=== PATIENT | female | born 1970 | race Asian ===

== ENCOUNTER → 2020-04-05 09:33 | Outpatient (CLI) | payer OTHER, SELFPAY ==
[2020-04-05 12:24] LABS: Add Manual Diff / Slide Review NO; Basophils Absolute Auto 0 /uL (0-100); Basophils Percent Auto 0.9 % (0-2); Eosinophils Absolute Auto 100 /uL (0-450); Hematocrit 40.2 % (36-46); Hemoglobin 13.1 g/dL (12.0-16.0); Lymphocytes Absolute Auto 1500 /uL (1100-4500); Lymphocytes Percent Auto 37.2 % (25-40); Mean Corpuscular HGB Conc 32.7 % (30-36); Mean Corpuscular Hemoglobin 30.1 PG (26-34); Mean Corpuscular Volume 92.1 fL (80-100); Monocytes Absolute Auto 200 /uL (0-900); Monocytes Percent Auto 5.9 % (3-14); Neutrophils Absolute Auto 2100 /uL (1500-7000); Platelet Count 184 X10^3/uL (150-400); Red Blood Cell Count 4.37 X10^6/uL (4.0-5.2); Red Cell Distribution Width 13.5 % (11.6-14.8); White Blood Cell Count 3.9 X10^3/uL (4.5-11.0)
[2020-04-05 12:44] LABS: Alanine Aminotransferase 147 IU/L (<35); Albumin Globulin Ratio 1.3 (1.0-2.8); Alkaline Phosphatase 68 U/L (38-126); Aspartate Aminotransferase 101 IU/L (14-36); BUN Creatinine Ratio 34.4 (6-22); Bilirubin Total 0.5 mg/dL (0.2-1.3); Blood Urea Nitrogen 22 mg/dL (7-17); Calcium 9.4 mg/dL (8.4-10.2); Carbon Dioxide 33 mmol/L (22-32); Chloride 106 mmol/L (98-107); Cholesterol 171 mg/dL (140-199); Estimated Glomerular Filt Rate > 60.0 mL/min (>60); Glucose 92 mg/dL (70-100); HDL Cholesterol 68 mg/dL (40-60); HEMOLYSIS < 15 (0-50); LDL Cholesterol Calculated 95 mg/dL (<100); Potassium 4.4 mmol/L (3.4-5.1); Sodium 140 mmol/L (137-145); Triglycerides 39 mg/dL (35-150)
[2020-04-05 13:13] LABS: Appearance Urine UA CLEAR; Bilirubin Urine UA NEGATIVE (NEGATIVE); Color Urine UA YELLOW; Glucose Urine UA NEGATIVE (Negative); Ketones Urine UA NEGATIVE (NEGATIVE); Leukocyte Esterase Urine UA NEGATIVE (NEGATIVE); Nitrite Urine UA NEGATIVE (Negative); Occult Blood Urine UA NEGATIVE (Negative); Protein Urine UA NEGATIVE (Negative); Specific Gravity Urine UA 1.025 (1.000-1.035); Urobilinogen Urine UA 0.2 E.U./dL (0.2)
== END ==
PROVIDERS: PCP Registered Nurse; Referring Provider Registered Nurse; Visit Provider Registered Nurse
DX: Z00.00 Encounter for general adult medical examination without abnormal findings (principal); Z82.49 Family history of ischemic heart disease and other diseases of the circulatory system
CPT/HCPCS: 80053; 80061; 81003; 85025

== ENCOUNTER → 2020-04-21 08:33 | Outpatient (CLI) | payer OTHER, SELFPAY ==
--- NOTE | 2020-04-21 08:35 | DI.MG.S_ITS ---
BILATERAL DIGITAL SCREENING MAMMOGRAM 3D/2D WITH CAD: 04/21/2020 CLINICAL: Baseline exam. Routine screening. Family history of breast cancer. No prior exams were available for comparison. There are scattered fibroglandular elements in both breasts. Current study was also evaluated with a Computer Aided Detection (CAD) system. No significant masses, calcifications, or other findings are seen in either breast. IMPRESSION: NEGATIVE There is no mammographic evidence of malignancy. A 1 year screening mammogram is recommended. This exam was interpreted at Station ID: [id number]. NOTE: For mammograms, a report in lay terms will be sent to the patient. Approximately 15% of breast malignancies will not be visualized mammographically. In the management of a palpable breast mass, a negative mammogram must not discourage biopsy of a clinically suspicious lesion. Electronically Signed By: Mau Segundo acr/hayden:04/21/2020 08:55:58 letter sent: Normal Exam ACR BI-RADS Category 1: Negative 3341F
== END ==
PROVIDERS: PCP Registered Nurse; Referring Provider Registered Nurse; Visit Provider Registered Nurse
DX: Z12.31 Encounter for screening mammogram for malignant neoplasm of breast (principal); Z80.3 Family history of malignant neoplasm of breast
CPT/HCPCS: 77063; 77067

== ENCOUNTER → 2020-05-27 09:06 | Outpatient (CLI) | payer OTHER, SELFPAY ==
[2020-05-27 10:30] LABS: COVID19 -Nasal RAPID Negative (Negative)
== END ==
PROVIDERS: PCP Registered Nurse; Visit Provider Surgery
DX: Z01.812 Encounter for preprocedural laboratory examination (principal); Z20.822 Contact with and (suspected) exposure to COVID-19
CPT/HCPCS: 87635; C9803

== ENCOUNTER 2020-05-30 08:12 | Day surgery (SDC) | payer OTHER, SELFPAY ==
--- NOTE | 2020-05-30 | PATH_ITS ---
[facility] Accession Number: [id number] . 01 Material submitted: . colon - CECUM POLYP . 01 Clinical history: . SDC . 02 Diagnosis: Cecum, Polyp: Tubular adenoma. MRV 06/02/2020 1105 Local . 02 Electronically signed: . Gino Mckinney MD, PhD, Pathologist NPI- [id number] . 01 Gross description: . The specimen is received in formalin, labeled cecum polyp and consists of a 0.3 x 0.3 x 0.2 cm grey fragment of soft tissue which is entirely submitted in cassette A1. ([id number]) /MRV 05/31/2020 1441 Local . 02 Pathologist provided ICD-10: D12.0 . 02 CPT . 415856 Performed at: 01 [facility] [address] [id number] MD Jose Juan Marte MD Phone: [phone] Performed at: 02 [facility] [place] [address] [facility] [facility] [address] [place], [place] [id number] MD Kailyn Tolentino MD Phone: [phone]
[2020-05-30] MEDS: LACTATED RINGERS 1,000 ML 200 ML IV (08:33)
[2020-05-30 08:36] VITALS: BP 103/72; PULSE 81; RESP 16; TEMP 36.8; O2SAT 96; BMI 22.6
--- NOTE | 2020-05-30 09:30 | PM.HP.1 ---
History of Present Illness History of Present Illness Date Patient Seen: 05/30/20 Time Patient Seen: 09:30 Chief complaint: SCC Narrative: The patient presents for colorectal sreening. They had a previously normal colonoscopy 10 years ago. No personal or family history of colon cancer. On further history denies any recent gastrointestinal symptoms. No nausea, vomiting, abdominal pain, loss of appetite, unexplained weight loss, change in bowel habits, diarrhea, constipation, melena, hematochezia, or bright red blood per rectum. Patient History Medical History Foot pain Surgical History Anesthesia History of section (~2004) Family & Social History Family History Mother History of heart disease Sister Breast cancer Social History: household members spouse,children Tobacco & Substance use: Smoking Status Never smoker alcohol intake current alcohol intake frequency a few times a month Substance Use Type does not use Meds Home Medications and Allergies Home Medications Medication Instructions Recorded Confirmed Type No Known Home Medications 03/01/20 05/30/20 History Allergies Allergy/AdvReac Type Severity Reaction Status Date / Time No Known Drug Allergies Allergy Verified 05/30/20 08:33 Review of Systems Review of Systems Narrative: A 10 point review of systems is negative except as noted in the HPI Exam Vital Signs (past 8 hours): - 05/30/20 08:36 Temperature 98.2 F Pulse Rate 81 Respiratory Rate 16 Blood Pressure 103/72 Pulse Oximetry 96 Oxygen Delivery Method Room Air Narrative Exam Narrative: General-no acute distress, well nourished thin female HEENT-moist mucous membranes, no scleral icterus Neck-supple, no lymphadenopathy Chest- non labored respirations, clear to auscultation bilaterally Cardiac-regular rate no peripheral edema Abdomen-soft, nontender, non distended Extremities-warm, well perfused Neurological-alert and oriented, no focal deficits Assessment & Plan Assessment & Plan narrative: The patient requires colorectal screening and colonoscopy is recommended. Technical details were discussed. Risks, benefits, alternatives explained. Risks including but not limited to myocardial infarction, aspiration, bleeding, pain, missed lesion, incomplete examination, need for further radiographic studies, colonic perforation, and need for major abdominal surgery were discussed. All questions were answered to their satisfaction, and they are in agreement with this plan.
[2020-05-30] MEDS: fentaNYL 250 MCG/5 ML INJ IV (09:35)
[2020-05-30] MEDS: MIDAZOLAM 5 MG/5 ML VIAL IV (09:35)
--- NOTE | 2020-05-30 09:57 | P.OP.ENDO_ITS ---
Operative Date/Time/Diagnoses Date of procedure: 05/30/20 Time of procedure: 09:57 Pre-op diagnosis: Screening colonoscopy Post-op diagnosis: same Procedure & Clinicians Study performed: Colonoscopy Polypectomy Same procedure as scheduled: Yes Indications: 49-year-old female last colonoscopy 10 years ago normal presents for routine screening Surgeon: Suhail Ballard Procedure Notes Procedure in detail: Medications: Conscious sedation [id number] IV midazolam and 100mcg IV of fentanyl The history and physical was performed/updated and the patient is ASA class is 1. The procedure was discussed in detail with the patient. Potential risks co mplications including infection, bleeding, missed diagnosis, perforation, need for surgery, and were explained. Their questions were answered and informed consent was obtained. Patient was brought to the procedure room and placed standard monitoring equipment. The patient's vital signs were monitored continuously throughout the entire procedure. Prior to starting time-out was performed. The patient was placed in the left lateral recumbent position. Procedural sedation was administered. Examination began with a thorough inspection of the perianal area there was no evidence of fissures, fistulae, external hemorrhoids or cutaneous malignancy. The colonoscopy scope was then placed into the anal canal and was advanced to the cecum, which was identified by the ileocecal valve, the appendiceal orifice and the confluence of the taenia. The scope was then slowly withdrawn examining colon thoroughly in all directions, irrigating it of any residual stool. 3 mm cecal polyp removed biopsy forceps The patient tolerated the procedure well. They will be discharged once criteria are met. The prep was of good/excellent quality. The withdrawl time was 10 minutes. The sedation time was 20 minutes. Specimen(s): other (Cecal polyp) Complications: none Impression: Colonic polyp Post-procedure Recommendations: Colonscopy in 5 years Disposition: same day surgery
[2020-05-30 09:59] VITALS: BP 96/63; PULSE 71; RESP 8; TEMP 36.1; O2SAT 96
[2020-05-30 10:03] VITALS: BP 101/65; PULSE 75; RESP 12; O2SAT 96
[2020-05-30 10:08] VITALS: BP 97/65; PULSE 65; RESP 10; O2SAT 96
[2020-05-30 10:13] VITALS: BP 105/75; PULSE 61; RESP 14; TEMP 36.5; O2SAT 95
[2020-05-30 10:17] VITALS: BP 108/74; PULSE 61; RESP 13; TEMP 36.6; O2SAT 97
== END 2020-05-30 10:31 | disposition home or self-care (01) ==
PROVIDERS: PCP Registered Nurse; Referring Provider Registered Nurse; Visit Provider Surgery
PROC: 0DJD8ZZ Inspection of Lower Intestinal Tract, Via Natural or Artificial Opening Endoscopic (ICD-10-PCS; CPT 45378; principal; 2020-05-30 09:15)
DX: Z12.11 Encounter for screening for malignant neoplasm of colon (principal); D12.0 Benign neoplasm of cecum
CPT/HCPCS: 45380; 99152; J2250; J3010

== ENCOUNTER → 2020-06-10 15:55 | Outpatient (CLI) | payer OTHER, SELFPAY ==
--- NOTE | 2020-06-10 15:58 | DI.RAD.S_ITS ---
PROCEDURE: XR FOOT LT MIN 3V INDICATIONS: left foot pain/sole of foot TECHNIQUE: 3 views of the foot were acquired. COMPARISON: None. FINDINGS: Bones: No fractures or dislocations. No suspicious bony lesions. Well-defined plantar calcaneal enthesophyte is seen. Soft tissues: No tibiotalar joint effusion. Achilles tendon appears normal. IMPRESSION: Well-defined plantar calcaneal enthesophyte. If clinically suspecting plantar fasciitis, ultrasound or MRI of calcaneus can be done for further evaluation. Dictated by: Rodrigue Conrad M.D. on 06/10/2020 at 16:37 Approved by: Rodrigue Conrad M.D. on 06/10/2020 at 16:37
[2020-06-10 17:06] LABS: Alanine Aminotransferase 69 IU/L (<35); Albumin Globulin Ratio 1.4 (1.0-2.8); Alkaline Phosphatase 52 U/L (38-126); Aspartate Aminotransferase 50 IU/L (14-36); Bilirubin Total 0.2 mg/dL (0.2-1.3); Bilirubin Unconjugated 0.3 mg/dL (0.0-1.1); Globulin 2.9 g/dL (1.7-4.1); HEMOLYSIS < 15 (0-50); Total Protein 6.9 g/dL (6.3-8.2)
[2020-06-11 07:40] LABS: Alpha Fetoprotein 2.3 ng/mL (0.0-8.3)
== END ==
PROVIDERS: PCP Registered Nurse; Referring Provider Registered Nurse; Visit Provider Registered Nurse
DX: M79.672 Pain in left foot (principal); M79.673 Pain in unspecified foot; R74.8 Abnormal levels of other serum enzymes
CPT/HCPCS: 36415; 73630; 80076; 82105

== ENCOUNTER → 2020-06-16 07:51 | Outpatient (CLI) | payer OTHER, SELFPAY ==
--- NOTE | 2020-06-16 07:52 | DI.US.S_ITS ---
PROCEDURE: US ABDOMEN COMPLETE INDICATIONS: ELEVATED LIVER ENZYMES TECHNIQUE: Real-time scanning was performed of the abdominal and retroperitoneal organs, with image documentation. COMPARISON: None. FINDINGS: Liver: Liver is normal in size and homogeneous in echotexture. The main portal vein demonstrates normal size and demonstrates normal appearing, hepatopetal flow. Gallbladder: No findings of gallstones or sludge are seen. The gallbladder wall is not thickened, measuring 3 mm or less. Multiple likely gallbladder wall polyps are seen, with the largest measuring up to 4.6 mm. No specific pericholecystic fluid is seen. The sonographic Vences sign is negative. Biliary ducts: Intrahepatic bile ducts are non-dilated. Extrahepatic bile duct caliber measures 4 mm. Normal is 6-7 mm or less in diameter, or 10 mm or less post-cholecystectomy. Pancreas: Visualized portions of the pancreas are sonographically normal. Spleen: Spleen is normal in size and homogeneous in echotexture. Kidneys: Kidneys are normal in size and echotexture. Right kidney measures 9.6 cm long; left kidney measures 9.4 cm long. No hydronephrosis or nephrolithiasis. However, on the right, there is trace pelvicaliectasis. No solid masses. Aorta: Visualized aorta is normal in caliber at less than 3 cm. Iliacs: Proximal common iliac arteries are normal in caliber at less than 2.5 cm. IVC: Intrahepatic inferior vena cava is patent. Miscellaneous: No free abdominal fluid. IMPRESSION: Normal appearing liver. Normal appearing gallbladder wall polyps are seen, without additional gallbladder abnormality. No biliary dilatation. Trace right kidney pelvicaliectasis incidentally noted. Dictated by: Yao Vuong M.D. on 06/16/2020 at 9:37 Approved by: Yao Vuong M.D. on 06/16/2020 at 9:39
== END ==
PROVIDERS: PCP Registered Nurse; Referring Provider Registered Nurse; Visit Provider Registered Nurse
DX: R74.8 Abnormal levels of other serum enzymes (principal); N28.89 Other specified disorders of kidney and ureter
CPT/HCPCS: 76700

== ENCOUNTER → 2022-06-25 14:51 | Outpatient (CLI) | payer OTHER, SELFPAY ==
--- NOTE | 2022-06-25 14:56 | DI.MG.S_ITS ---
BILATERAL DIGITAL SCREENING MAMMOGRAM 3D/2D WITH CAD: 06/25/2022 CLINICAL: Routine screening. Family history of breast cancer. Comparison is made to exam dated: 04/21/2020 mammogram - [facility]. There are scattered areas of fibroglandular density in both breasts (category b / 25%-50% glandular tissue). Current study was also evaluated with a Computer Aided Detection (CAD) system. No significant masses, calcifications, or other findings are seen in either breast. There has been no significant interval change. IMPRESSION: NEGATIVE There is no mammographic evidence of malignancy. A 1 year screening mammogram is recommended. This exam was interpreted at Station ID: [id number]. NOTE: For mammograms, a report in lay terms will be sent to the patient. Approximately 15% of breast malignancies will not be visualized mammographically. In the management of a palpable breast mass, a negative mammogram must not discourage biopsy of a clinically suspicious lesion. Electronically Signed By: Jorge walker/hayden:06/26/2022 07:55:31 letter sent: Normal Exam ACR BI-RADS Category 1: Negative 3341F
== END ==
PROVIDERS: PCP Nurse Practitioner; Referring Provider Nurse Practitioner; Visit Provider Nurse Practitioner
DX: Z12.31 Encounter for screening mammogram for malignant neoplasm of breast (principal); Z80.3 Family history of malignant neoplasm of breast
CPT/HCPCS: 77063; 77067

== ENCOUNTER 2022-09-11 06:41 | Emergency (ER) | payer OTHER, SELFPAY ==
[2022-09-11] VITALS (11 sets, daily range): BP systolic 92–132; BP diastolic 54–87; PULSE 61–76; RESP 18–47; O2SAT 94–98; BMI 19.5
--- NOTE | 2022-09-11 06:49 | DI.RAD.S_ITS ---
PROCEDURE: XR CHEST 1V INDICATIONS: chest pain TECHNIQUE: One view of the chest was acquired. COMPARISON: None. FINDINGS: Surgical changes and devices: None. Lungs and pleura: Lungs are clear. No pleural effusions or pneumothorax. Mediastinum: Mediastinal contours appear normal. Heart size is normal. Bones and chest wall: No suspicious bony lesions. Overlying soft tissues appear unremarkable. IMPRESSION: No acute cardiopulmonary abnormality. This report is concordant with the overnight preliminary interpretation. Dictated by: Jorge Stephens M.D. on 09/11/2022 at 7:55 Approved by: Jorge Stephens M.D. on 09/11/2022 at 7:55
[2022-09-11 06:57] LABS: Add Manual Diff / Slide Review NO; Basophils Absolute Auto 0 /uL (0-100); Basophils Percent Auto 0.6 % (0-2); Eosinophils Absolute Auto 100 /uL (0-450); Eosinophils Percent Auto 2.1 % (2-4); Hematocrit 38.5 % (36-46); Hemoglobin 13.1 g/dL (12.0-16.0); Lymphocytes Absolute Auto 1000 /uL (1100-4500); Lymphocytes Percent Auto 20.8 % (25-40); Mean Corpuscular HGB Conc 33.9 % (30-36); Mean Corpuscular Hemoglobin 30.6 PG (26-34); Mean Corpuscular Volume 90.2 fL (80-100); Monocytes Absolute Auto 500 /uL (0-900); Neutrophils Absolute Auto 3200 /uL (1500-7000); Neutrophils Percent Auto 66.5 % (50-75); Platelet Count 165 X10^3/uL (150-400); Red Blood Cell Count 4.27 X10^6/uL (4.0-5.2); Red Cell Distribution Width 13.4 % (11.6-14.8); White Blood Cell Count 4.8 X10^3/uL (4.5-11.0)
[2022-09-11] MEDS: ASPIRIN 81 MG CHEW TAB 324 MG PO (07:06)
[2022-09-11] MEDS: SODIUM CHLORIDE 0.9% 1,000 ML 150 ML IV (07:07)
[2022-09-11] MEDS: NITROGLYCERIN 0.4 MG SL TAB SL (07:07)
[2022-09-11 07:12] LABS: Alanine Aminotransferase 164 IU/L (<35); Albumin 3.9 g/dL (3.5-5.0); Albumin Globulin Ratio 1.3 (1.0-2.8); Alkaline Phosphatase 68 U/L (38-126); Aspartate Aminotransferase 154 IU/L (14-36); Bilirubin Total 0.4 mg/dL (0.2-1.3); Blood Urea Nitrogen 14 mg/dL (7-17); Calcium 8.7 mg/dL (8.4-10.2); Carbon Dioxide 27 mmol/L (22-32); Chloride 105 mmol/L (98-107); Creatine Kinase 61 U/L (30-135); Estimated Glomerular Filt Rate > 60 mL/min (>60); Glucose 100 mg/dL (70-100); Lipase 183 U/L (23-300); Sodium 137 mmol/L (137-145); Total Protein 6.9 g/dL (6.3-8.2)
--- NOTE | 2022-09-11 07:29 | ED_ITS ---
HPI - General Adult General Chief complaint: Chest Pain Stated complaint: chest pain Time Seen by Provider: 09/11/22 06:48 Source: patient and family Mode of arrival: Ambulatory Limitations: no limitations History of Present Illness HPI narrative: Patient is a 51-year-old female without prior diagnosed medical problems who is here for evaluation of left-sided chest pressure. She states the pressure woke her this morning. At the time of my evaluation she would received nitroglycerin which she states she feels like has resolved her symptoms. She stated that she has had discomfort like this in the past but it was several weeks ago. It woke her from sleep. She states that it did go away on its own after several minutes. She states that it feels like it does radiate to her back. No problems breathing. Not worse with palpation or movement. No nausea vomiting. No lower extremity swelling. No interventions prior to arrival. Related Data Allergies Allergy/AdvReac Type Severity Reaction Status Date / Time No Known Drug Allergies Allergy Verified 06/23/20 08:30 Review of Systems Cardiovascular Cardiovascular: Reports system reviewed and no additional complaints, except as documented Respiratory Respiratory: Reports system reviewed and no additional complaints, except as documented Gastrointestinal Gastrointestinal: Reports system reviewed and no additional complaints, except as documented Integumentary/Breasts Skin/Breast: Reports system reviewed and no additional complaints, except as documented Neurologic Neurologic: Reports system reviewed and no additional complaints, except as documented Hematologic/Lymphatic On Anticoagulants: No Patient History Medical History Foot pain Surgical History Anesthesia History of section (~2004) Family History Mother History of heart disease Sister Breast cancer Social History household members: spouse and children Smoking Status: Never smoker alcohol intake: current Smoking Status: Never smoker alcohol intake frequency: a few times a month Substance Use Type: does not use Exam Initial Vital Signs Initial Vital Signs: Vital Signs Pulse Rate 76 09/11/22 06:47 Respiratory Rate 18 09/11/22 06:47 Blood Pressure 129/84 09/11/22 06:47 Pulse Oximetry 97 09/11/22 06:47 Const General: cooperative, comfortable and No ill appearing HENMT Head: normal to inspection and normocephalic Resp Effort & Inspection: normal respiratory effort Auscultation: clear to auscultation bilaterally Cardio Rate: regular rate Rhythm: regular rhythm GI Inspection: non-distended Palpation: soft and No tender Skin General: no rashes or lesions noted Neuro General: patient alert, patient awake and moves all extremities Extrem General: No edema Scores HEART Score Heart Score history: Moderately Suspicious Heart Score EKG: Non-Specific repolarization disturbance Heart Score Age: 45-64 years old Heart Score risk factors: No known risk factors Heart Score troponin: < or = to normal limit Heart Score Total: 3 Course Orders Ordered: ED Orders 09/11/22 06:49 XR chest 1V Stat 09/11/22 06:50 Complete Blood Count AUTO DIFF Stat Comprehensive Metabolic Panel Stat Lipase Stat Troponin & CK Cardiac Panel Stat 09/11/22 06:51 EKG-12 Lead Stat 09/11/22 09:02 Troponin & CK Cardiac Panel Stat Sodium Chloride (Normal Saline 0.9%) 1,000 mls @ 150 mls/hr IV CONT CATHERINE Last Admin: 09/11/22 07:07 Dose: 150 mls/hr Documented By: KELLY Nitroglycerin (Nitroglycerin 0.4 Mg Sl Tab) 0.4 mg SL [id number] PRN PRN Reason: Chest Pain Last Admin: 09/11/22 07:07 Dose: 0.4 mg Documented By: KELLY Discontinued Medications Aspirin (Aspirin 81 Mg Chew Tab) 324 mg PO NOW ONE Stop: 09/11/22 06:49 Last Admin: 09/11/22 07:06 Dose: 324 mg Documented By: KELLY Vital Signs Vital signs: Vital Signs - 8 hr 09/11/22 06:47 09/11/22 06:47 09/11/22 07:07 Pulse Rate 76 76 Respiratory Rate 18 Blood Pressure 129/84 132/74 Pulse Oximetry 97 09/11/22 06:59 09/11/22 06:59 09/11/22 07:00 Pulse Rate 75 74 Respiratory Rate 47 H 35 H Blood Pressure 129/87 Pulse Oximetry 97 98 09/11/22 07:03 09/11/22 07:03 Pulse Rate 76 Respiratory Rate 18 Blood Pressure 92/54 L Pulse Oximetry 98 Medical Decision Making Lab Data Lab results reviewed: Yes I reviewed the patient's lab results. 09/11/22 06:50 09/11/22 06:50 Labs: Lab Results 09/11/22 09/11/22 09/11/22 Range/Units 06:50 06:50 09:02 WBC 4.8 (4.5-11.0) X10^3/uL RBC 4.27 (4.0-5.2) X10^6/uL Hgb 13.1 (12.0-16.0) g/dL Hct 38.5 (36-46) % MCV 90.2 (80-100) fL MCH 30.6 (26-34) PG MCHC 33.9 (30-36) % RDW 13.4 (11.6-14.8) % Plt Count 165 (150-400) X10^3/uL Neut % (Auto) 66.5 (50-75) % Lymph % (Auto) 20.8 L (25-40) % [place] % (Auto) 10.0 (3-14) % Eos % (Auto) 2.1 (2-4) % Baso % (Auto) 0.6 (0-2) % Neut # (Auto) 3200 (2196-9597) /uL Lymph # (Auto) 1000 L (1879-4231) /uL [place] # (Auto) 500 (0-900) /uL Eos # (Auto) 100 (0-450) /uL Baso # (Auto) 0 (0-100) /uL Sodium 137 (137-145) mmol/L Potassium 4.0 (3.4-5.1) mmol/L Chloride 105 (98-107) mmol/L Carbon Dioxide 27 (22-32) mmol/L BUN 14 (7-17) mg/dL Creatinine 0.61 (0.52-1.04) mg/dL Estimated GFR > 60 (>60) mL/min BUN/Creatinine Ratio 23.0 H (6-22) Glucose 100 (70-100) mg/dL Calcium 8.7 (8.4-10.2) mg/dL Total Bilirubin 0.4 (0.2-1.3) mg/dL AST 154 H (14-36) IU/L ALT 164 H (<35) IU/L Alkaline Phosphatase 68 (38-126) U/L Total Creatine Kinase 61 57 (30-135) U/L CK-MB (CK-2) TNP TNP CK-MB (CK-2) Rel Index TNP TNP Troponin I < 0.012 < 0.012 (0.01-0.034) ng/mL Total Protein 6.9 (6.3-8.2) g/dL Albumin 3.9 (3.5-5.0) g/dL Globulin 3.0 (1.7-4.1) g/dL Albumin/Globulin Ratio 1.3 (1.0-2.8) Lipase 183 (23-300) U/L Imaging Data Chest x-ray: Radiologist's Impression: PROCEDURE:? XR CHEST 1V ? INDICATIONS:? chest pain ? TECHNIQUE:? One view of the chest was acquired.? ? COMPARISON:? None. ? FINDINGS:? ? Surgical changes and devices:? None.? ? Lungs and pleura:? Lungs are clear.? No pleural effusions or pneumothorax.? ? Mediastinum:? Mediastinal contours appear normal.? Heart size is normal.? ? Bones and chest wall:? No suspicious bony lesions.? Overlying soft tissues appear unremarkable.? ? IMPRESSION:? No acute cardiopulmonary abnormality. ? This report is concordant with the overnight preliminary interpretation. ECG Data Attestation: I personally reviewed and interpreted this ECG as follows: Interpretation: Sinus rhythm Ventricular rate is 72 Normal axis Normal QRS Inverted T-waves V1 V2 V3 MDM Narrative Medical decision making narrative: Patient does have a low risk heart score. She is nonspecific changes on her EKG. Had a long discussion with the patient and her at bedside regarding her presenting symptoms today. We discussed the lack of a definitive diagnosis. Discussed the possibility of a cardiac source. We discussed options to include admission to the hospital for further risk stratification testing to include a stress test versus discharge home. We did discuss the difficulty with getting the stress test done as an outpatient because of her lack of a de finitive primary care doctor. I also informed them of the importance of this risk stratification testing. After this discussion the patient and her decided to stay for repeat troponin and then discharge home. Her 2nd troponin was negative. We will discharge the patient home with strict return precautions. She expressed understanding and agreement. Discharge Plan Departure Patient Disposition: Home Clinical Impression: Atypical chest pain Instructions: DI for Atypical Chest Pain Activity Restrictions/Additional Instructions: I do recommend that you contact your primary doctor's office for follow-up as you do need further testing to include a stress test. Return to the emergency department for any new or worsening symptoms. Referrals: Ashtyn Houston ARNP [Primary Care Provider] - Stand Alone Forms: Patient Portal/API
[2022-09-11 07:32] LABS: Troponin I < 0.012 ng/mL (0.01-0.034)
[2022-09-11 08:14] LABS: HEMOLYSIS 19 (0-50)
[2022-09-11 09:22] LABS: Creatine Kinase 57 U/L (30-135)
[2022-09-11 09:34] LABS: Troponin I < 0.012 ng/mL (0.01-0.034)
== END 2022-09-11 10:00 | disposition home or self-care (01) ==
PROVIDERS: Emergency Medicine; Emergency Provider Emergency Medicine; PCP Nurse Practitioner
DX: R07.89 Other chest pain (principal)
CPT/HCPCS: 36415; 71045; 80053; 82550; 83690; 84484; 85025; 93005; 99284

== ENCOUNTER → 2022-10-24 10:51 | Outpatient (CLI) | payer OTHER, SELFPAY ==
[2022-10-24 13:21] LABS: Alanine Aminotransferase 152 IU/L (<35); Albumin 4.2 g/dL (3.5-5.0); Albumin Globulin Ratio 1.3 (1.0-2.8); Alkaline Phosphatase 76 U/L (38-126); Aspartate Aminotransferase 75 IU/L (14-36); Bilirubin Total 0.7 mg/dL (0.2-1.3); Bilirubin Unconjugated 0.6 mg/dL (0.0-1.1); Cholesterol 216 mg/dL (140-199); Globulin 3.2 g/dL (1.7-4.1); HDL Cholesterol 77 mg/dL (40-60); HEMOLYSIS < 15 (0-50); LDL Cholesterol Calculated 127 mg/dL (<100); Total Protein 7.4 g/dL (6.3-8.2); Triglycerides 59 mg/dL (35-150)
[2022-10-24 13:26] LABS: HEMOLYSIS < 15 (0-50); Iron 112 ug/dL (37-170)
[2022-10-24 13:38] LABS: Percent Iron Saturation 32 % (15-50); Total Iron Binding Capacity 354 ug/dL (265-497); Transferrin 257 mg/dL (206-381)
[2022-10-24 18:32] LABS: Hepatitis B Surface Antigen NEGATIVE s/c (NEGATIVE)
[2022-10-24 19:04] LABS: Hep C Virus Ab w/Reflex Quant NEGATIVE s/c (NEGATIVE)
[2022-10-25 06:17] LABS: Ceruloplasmin 22.2 mg/dL (19.0-39.0)
[2022-10-25 06:17] LABS: Labcorp Hemoglobin (Hb) A1c 5.8 % (4.8-5.6)
[2022-10-26 03:48] LABS: Hepatitis B Surf Ab Qualitativ Non Reactive (.)
== END ==
PROVIDERS: PCP Family Medicine; Referring Provider Family Medicine; Visit Provider Family Medicine
DX: Z00.00 Encounter for general adult medical examination without abnormal findings (principal); R07.89 Other chest pain
CPT/HCPCS: 36415; 80061; 80076; 82390; 83036; 83540; 83550; 86706; 86803; 87340

== ENCOUNTER → 2023-02-19 16:13 | Outpatient (CLI) | payer OTHER, SELFPAY ==
--- NOTE | 2023-02-19 16:14 | DI.US.S_ITS ---
PROCEDURE: US ABDOMEN LIMITED INDICATIONS: ELEVATED LFT'S TECHNIQUE: Real-time scanning was performed of the abdominal and retroperitoneal organs, with image documentation. COMPARISON: [facility], US, US ABDOMEN COMPLETE, 06/16/2020, 8:04. FINDINGS: Liver: Liver is normal in size and homogeneous in echotexture. Gallbladder: Multiple gallbladder polyps are seen measures up to 4 x 5 x 4.6 mm in size compared to 4.6 x 4 x 3.4 mm on previous study. There is no gallbladder wall thickening or pericholecystic fluid. No sonographic Vences's sign. Biliary ducts: Intrahepatic bile ducts are non-dilated. Extrahepatic bile duct caliber measures to mm. Normal is 6-7 mm or less in diameter, or 10 mm or less post-cholecystectomy. Pancreas: Visualized portions of the pancreas are sonographically normal. IMPRESSION: 1. Multiple small gallbladder polyps minimally increased in size compared to previous study. No sonographic evidence of acute cholecystitis. No biliary ductal dilatation. Dictated by: Rodrigue Conrad M.D. on 02/19/2023 at 22:16 Approved by: Rodrigue Conrad M.D. on 02/19/2023 at 22:17
== END ==
PROVIDERS: PCP Family Medicine; Referring Provider Family Medicine; Visit Provider Family Medicine
DX: K82.4 Cholesterolosis of gallbladder (principal); R74.8 Abnormal levels of other serum enzymes
CPT/HCPCS: 76705